=== PATIENT | female | born 1965 | race Caucasian/White ===

== ENCOUNTER → 2017-03-24 | Outpatient (CLI) | payer OTHER, MEDICARE ==
[2014-07-15 00:40] VITALS: BP 122/58
[~2017-03-24] MED LIST: ALPR0.25 PO; ASPI-482 PO; HYDR-2766 PO; LEVE500T56 PO; LEVO500T8 PO; MAGN400T17 PO; NITR0.4T22 SL; OXYC10TA PO; PANT40TA3 PO; POT25TAB PO; SERT100T PO; TOPI50TA38 PO; TORS20TA2 PO; WARF2TAB PO
--- NOTE | 2017-03-24 11:37 | RAD ---
Indication pain. Fall. Internally and externally rotated views of the left shoulder were obtained as well as a Y view. No acute finding is seen. Significant degenerative changes are not apparent.
--- NOTE | 2017-03-24 11:55 | RAD ---
INDICATION: LEFT SIDED CHEST WALL PAIN, LEFT SHOULDER PAIN X 1 DAY, FALL COMPARISON: September 18, 2014 IMPRESSION: 3 views of chest and left ribs obtained. Pacemaker is identified with mildly prominent cardiac silhouette. No definite focal airspace consolidation or pulmonary edema. No displaced left rib fracture.
== END | disposition home or self-care (01) ==
LOC: DXRADRC 11:07
PROVIDERS: ATTEND Physician Assistant
DX: M25.512 Pain in left shoulder (principal); Z95.0 Presence of cardiac pacemaker; W19.XXXD Unspecified fall, subsequent encounter
CPT/HCPCS: 71101; 73030

== ENCOUNTER → 2017-09-06 | Outpatient (CLI) | payer OTHER, MEDICARE ==
[2014-07-15 00:40] VITALS: BP 122/58
--- NOTE | 2017-09-06 13:14 | RAD ---
Chest, 2 views, 09/06/2017: History: Dyspnea Comparison is made to a study from 03/24/2017. A left-sided transvenous pacemaker is in place with 3 leads extending into the heart. The heart is mildly enlarged with prominence of the left ventricle. The pulmonary vascularity is normal. No pulmonary infiltrates are seen. There is no evidence of pleural fluid. There is an old mild midthoracic vertebral compression fracture. IMPRESSION: 1. Mild cardiomegaly. 2. No acute abnormality is detected.
== END | disposition home or self-care (01) ==
LOC: PMG 12:25
PROVIDERS: ATTEND Physician Assistant
DX: R06.00 Dyspnea, unspecified (principal); I51.7 Cardiomegaly; Z95.0 Presence of cardiac pacemaker
CPT/HCPCS: 71046

== ENCOUNTER → 2018-07-25 | Outpatient (CLI) | payer OTHER, MEDICARE ==
[2014-07-15 00:40] VITALS: BP 122/58
--- NOTE | 2018-07-25 16:42 | RAD ---
CHEST PA LATERAL Clinical indications: heart failure, short of air COMPARISON: September 06, 2017. Findings: No acute lung infiltrate or pleural effusion or pulmonary edema or lung mass or pneumothorax is seen. 3-lead pacemaker is again evident. Cardiomegaly is again evident which is stable. The pulmonary vasculature, mediastinum and both sim are unremarkable. Mild wedge compression deformity of a T8 vertebral body is seen which is stable. Impression: No acute radiographic abnormality is seen. Electronically signed by: Ryan Miller MD (07/25/2018 4:38 PM) [place] [id number]
== END | disposition home or self-care (01) ==
LOC: PMG 15:06
PROVIDERS: ATTEND Physician Assistant
DX: M43.8X4 Other specified deforming dorsopathies, thoracic region (principal); I51.7 Cardiomegaly
CPT/HCPCS: 71046